=== PATIENT | male | born 1975 | race American Indian/Alaskan Native ===

== ENCOUNTER 2017-01-06 20:29 | Emergency (ER) | payer BC ==
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
[2017-01-07 03:02] VITALS: BP 129/67
== END 2017-01-07 02:54 | disposition home or self-care (01) ==
LOC: ED 01-07 00:08
DX: M54.5 Low back pain (principal); W10.8XXA Fall (on) (from) other stairs and steps, initial encounter; Y93.89 Activity, other specified; Y99.8 Other external cause status; Y92.89 Other specified places as the place of occurrence of the external cause
CPT/HCPCS: 99282

== ENCOUNTER 2017-02-03 14:44 | Emergency (ER) | payer BC ==
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
[2017-02-03 21:05] VITALS: BP 132/89
[2017-02-03] MEDS ORDERED: MOTRIN PO ONE (21:16)
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
== END 2017-02-03 21:40 | disposition home or self-care (01) ==
LOC: ED 14:44
DX: S09.90XA Unspecified injury of head, initial encounter (principal); F17.200 Nicotine dependence, unspecified, uncomplicated; W20.8XXA Other cause of strike by thrown, projected or falling object, initial encounter; Y93.89 Activity, other specified; Y99.8 Other external cause status; Y92.098 Other place in other non-institutional residence as the place of occurrence of the external cause
CPT/HCPCS: 70450

== ENCOUNTER 2017-03-27 21:04 | Emergency (ER) | payer BC ==
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
[2017-03-28 04:13] VITALS: BP 125/78
== END 2017-03-28 04:01 | disposition home or self-care (01) ==
LOC: ED 21:04
DX: L02.412 Cutaneous abscess of left axilla (principal)
CPT/HCPCS: 99282

== ENCOUNTER 2017-04-16 11:49 | Emergency (ER) | payer BC ==
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
[2017-04-16 17:33] VITALS: BP 118/81
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
== END 2017-04-16 17:32 | disposition home or self-care (01) ==
LOC: ED 11:49
DX: M25.512 Pain in left shoulder (principal); F17.210 Nicotine dependence, cigarettes, uncomplicated
CPT/HCPCS: 99283

== ENCOUNTER 2017-06-08 06:46 | Emergency (ER) | payer BC ==
[2017-06-08] MEDS ORDERED: MOTRIN PO ONE (08:11)
[2017-06-08] MEDS ORDERED: TYLENOL PR ONE (08:21)
[2017-06-08] MEDS ORDERED: TYLENOL PO ONE (08:41)
[2017-06-08] MEDS ORDERED: TYLENOL ONE (08:42)
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
--- NOTE | 2017-06-08 08:52 | XRay Report ---
FINAL REPORT EXAM: XR SPINE LUMBOSACRAL 2-3V HISTORY: fall,lower back pain TECHNIQUE: Three views lumbar spine PRIORS: None. FINDINGS: Lumbar lordosis is intact. Vertebral body heights and intervertebral disc spaces are preserved. No listhesis, spondylolysis or other fracture. IMPRESSION: Unremarkable lumbar spine radiographs.
--- NOTE | 2017-06-08 08:53 | XRay Report ---
FINAL REPORT EXAM: XR PELVIS 1-2V HISTORY: fall,lower back pain COMPARISONS: None. FINDINGS: Single AP view of the pelvis Portions of the sacrum are obscured by overlying bowel gas and stool. No displaced fracture. Hip joint spaces are unremarkable. Right inguinal surgical clips are noted. IMPRESSION: No displaced pelvic fracture.
[2017-06-08 09:57] VITALS: BP 130/80
== END 2017-06-08 09:57 | disposition home or self-care (01) ==
LOC: ED 06:46
DX: S39.012A Strain of muscle, fascia and tendon of lower back, initial encounter (principal); F17.200 Nicotine dependence, unspecified, uncomplicated; W01.0XXA Fall on same level from slipping, tripping and stumbling without subsequent striking against object, initial encounter; Y93.9 Activity, unspecified; Y92.9 Unspecified place or not applicable; Y99.9 Unspecified external cause status
CPT/HCPCS: 72100; 72170